=== PATIENT | female | born 1975 | race Caucasian/White ===

== ENCOUNTER 2019-04-28 18:41 | Emergency (ER) | payer BC ==
[2019-04-28] MEDS ORDERED: GLUCAGON,HUMAN RECOMB 1 MG INJ IM ONE (18:49)
--- NOTE | 2019-04-28 18:56 | ER Document Report ---
ED Medical Screen (RME) - General Chief Complaint: Other Stated Complaint: FOOD STUCK IN THROAT Time Seen by Provider: 04/28/19 18:48 Primary Care Provider: SUNITA ARZOLA DO [Primary Care Provider] - Follow up as needed TRAVEL OUTSIDE OF THE [place] IN LAST 30 DAYS: No - HPI Notes: 04/28/19 18:54 44-year-old female presents emergency room for evaluation after he states she feels like she has "something stuck in her throat" x 1 hour ago after eating chicken breasts. Pt is speaking clearly. she tried to vomit up fb, but was unable to. pt is managing her secretions. 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 denies any fevers or chills. denies cp, sob, v/d, I have greeted and performed a rapid initial assessment of this patient. A comprehensive ED assessment and evaluation of the patient, analysis of test results and completion of the medical decision making process will be conducted by additional ED providers. PHYSICAL EXAMINATION: GENERAL: Well-appearing, well-nourished and in no acute distress. HEAD: Atraumatic, normocephalic. EYES: Pupils equal round extraocular movements intact, conjunctiva are normal. ENT: Nares patent. Uvula midline. Speaking in full sentences. No trismus, no drooling. No hot potato voice. No lymphadenopathy NECK: Normal range of motion LUNGS: No respiratory distress Musculoskeletal: Normal range of motion NEUROLOGICAL: Normal speech, normal gait. PSYCH: Normal mood, normal affect. SKIN: Warm, Dry, normal turgor, no rashes or lesions noted. Physical Exam - Vital signs Vitals: Temp Pulse Resp BP Pulse Ox 98.8 F 96 16 112/74 95 04/28/19 18:45 04/28/19 18:45 04/28/19 18:45 04/28/19 18:45 04/28/19 18:45 Course - Vital Signs Vital signs: Temp Pulse Resp BP Pulse Ox 98.8 F 96 16 112/74 95 04/28/19 18:45 04/28/19 18:45 04/28/19 18:45 04/28/19 18:45 04/28/19 18:45 Doctor's Discharge - Discharge Referrals: SUNITA ARZOLA DO [Primary Care Provider] - Follow up as needed
--- NOTE | 2019-04-28 19:10 | RADIOLOGY REPORT (SQ) ---
EXAM DESCRIPTION: SOFT TISSUE NECK COMPLETED DATE/TIME: 04/28/2019 7:01 pm REASON FOR STUDY: states food in trachea, fb COMPARISON: None. NUMBER OF VIEWS: Two views. TECHNIQUE: AP and lateral radiographic image of the soft tissues of the neck. LIMITATIONS: None. FINDINGS: EPIGLOTTIS: Normal. Contour normal. Aryepiglottic folds normal. PREVERTEBRAL SOFT TISSUES: Normal. No soft tissue swelling. SUBGLOTTIC AREA: Normal. No narrowing. RETROPHARYNGEAL SPACE: Normal. No soft tissue masses. BONES: No significant findings. LUNG APICES: Normal. OTHER: No radiopaque foreign body. No other significant finding. IMPRESSION: NEGATIVE STUDY OF THE SOFT TISSUES OF THE NECK. TECHNICAL DOCUMENTATION: JOB ID: [id number] [employer]- All Rights Reserved Reading location - IP/workstation name: [email or web address]
[2019-04-28] MEDS ORDERED: ONDANSETRON HCL INJ/PF 4 MG/2 ML SDV IV ONE (22:08)
[2019-04-28] MEDS ORDERED: ONDANSETRON ODT 4 MG TAB (6 TAB/ER DISP) PO PRN (22:18)
--- NOTE | 2019-04-28 22:25 | ER Document Report ---
ED General - General Chief Complaint: Foreign Body Stated Complaint: FOOD STUCK IN THROAT Time Seen by Provider: 04/28/19 18:48 Primary Care Provider: SUNITA ARZOLA DO [NO LOCAL MD] - Follow up as needed Notes: 44-year-old female presents emergency department stating that she thinks she has some chicken stuck in her throat. A few hours prior to arrival she ate some chicken and has been unable to swallow since then. 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 Patient states that she has had this happen multiple times but she can usually swallow the food on her own or vomited up on her own. Patient also notes that she has recently had some nausea, vomiting and diarrhea. Denies any abdominal pain and denies any fevers. TRAVEL OUTSIDE OF THE [place] IN LAST 30 DAYS: No - Related Data Allergies/Adverse Reactions: cefaclor [From Ceclor] Allergy (Verified 04/28/19 19:31) cephalexin [From Keflex] Allergy (Verified 04/28/19 19:31) Penicillins Allergy (Verified 04/28/19 19:31) Past Medical History - General Information source: Patient - Social History Smoking Status: Never Smoker Chew tobacco use (# tins/day): No Frequency of alcohol use: None Drug Abuse: None Family History: Reviewed & Not Pertinent Patient has suicidal ideation: No Patient has homicidal ideation: No Review of Systems - Review of Systems Constitutional: No symptoms reported EENT: See HPI Gastrointestinal: See HPI -: Yes All other systems reviewed and negative Physical Exam - Vital signs Vitals: Temp Pulse Resp BP Pulse Ox 98.8 F 96 16 112/74 95 04/28/19 18:45 04/28/19 18:45 04/28/19 18:45 04/28/19 18:45 04/28/19 18:45 Interpretation: Normal - Notes Notes: Examination takes place after patient was given glucagon from triage. GENERAL: Alert, interacts well. No acute distress. HEAD: Normocephalic, atraumatic EYES: Pupils equal, round and reactive to light, extraocular movements intact. ENT: Oral mucosa moist, tongue midline. No difficulty swallowing, tolerating secretions well. NECK: Full range of motion, supple, trachea midline. LUNGS: Clear to auscultation bilaterally, no wheezes, rales or rhonchi, no respiratory distress. HEART: Regular rate and rhythm, no murmurs, gallops, rubs. ABDOMEN: Soft, nontender, nondistended, bowel sounds present in all 4 quadrants. EXTREMITIES: Moves all 4 extremities spontaneously. NEUROLOGICAL: Alert and oriented x3, normal speech. PSYCH: Normal mood, normal affect. SKIN: Warm, Dry, normal turgor, no rashes or lesions noted. Course - Re-evaluation Re-evalutation: 04/28/19 22:40 Soft tissue neck does not show a radiopaque foreign body. After being given g lucagon patient developed vomiting approximately 1 hour later, vomited up the chicken, was given Zofran for her vomiting, since then has able to swallow lary eric without difficulty. No abdominal pain, has had some diarrhea. No blood in either the vomit or the stool. Vomiting has stopped with Zofran. Discharged home with Zofran ODT. Abdomen is benign. Will return for blood, fever, uncontrollable vomiting or abdominal pain. - Vital Signs Vital signs: Temp Pulse Resp BP Pulse Ox 98.8 F 96 19 103/80 98 04/28/19 18:49 04/28/19 18:45 04/28/19 20:22 04/28/19 20:22 04/28/19 20:22 Discharge - Discharge Clinical Impression: Esophageal food bolus, Nausea vomiting and diarrhea Foreign body in esophagus Qualifiers: Encounter type: initial encounter Qualified Code(s): T18.108A - Unspecified foreign body in esophagus causing other injury, initial encounter Condition: Stable Disposition: HOME, SELF-CARE Additional Instructions: After giving glucagon the food stuck in your throat came up. You have since developed vomiting and diarrhea. We are treating this with Zofran. You should also take Imodium as directed on the box [id number] to help with your diarrhea after 24 hours. If the Zofran does not control your vomiting, if you develop a fever or abdominal pain please return to the emergency department. Referrals: SUNITA ARZOLA, [NO LOCAL MD] - Follow up as needed
[2019-04-28 22:30] VITALS: BP 110/62
== END 2019-04-28 22:32 | disposition home or self-care (01) ==
LOC: ER 18:41
DX: T18.128A Food in esophagus causing other injury, initial encounter (principal); X58.XXXA Exposure to other specified factors, initial encounter; Y93.89 Activity, other specified; R11.2 Nausea with vomiting, unspecified; R19.7 Diarrhea, unspecified; Z98.890 Other specified postprocedural states; Z88.1 Allergy status to other antibiotic agents; Z88.0 Allergy status to penicillin
CPT/HCPCS: 70360; J1610; J2405; 96372; 96374; 99283